=== PATIENT | female | born 1965 | race Caucasian/White ===

== ENCOUNTER 2020-07-01 07:29 | Outpatient (CLI) | payer OTHER, SELFPAY ==
--- NOTE | ~2020-07-01 | MM_ITS ---
EXAMINATION: MM screening [facility] BI w teri HISTORY: Screening TECHNIQUE: Craniocaudal and mediolateral oblique 3-D tomosynthesis images were obtained and synthetic 2-D images were generated. CAD analysis was submitted and interpreted. COMPARISON: Comparison to multiple prior studies sequentially, with oldest reviewed study dated 09/14. BREAST PARENCHYMAL COMPOSITION: There are scattered areas of fibroglandular density. FINDINGS: There is no evidence of suspicious mass, calcification, or architectural distortion to sugg est malignancy in either breast. There has been no suspicious interval change. IMPRESSION: 1. No mammographic evidence of malignancy. 2. Recommend routine screening mammography in one year. BI-RADS Category 1: Negative Reviewed, dictated and finalized at location A. NSIC MEDICAL EXAMINER
== END 2020-07-01 07:30 | disposition home or self-care (01) ==
LOC: ANHIMG 07:32
PROVIDERS: Family Provider Family Medicine; PCP Family Medicine; Visit Provider Advanced Practice Midwife
DX: Z12.31 Encounter for screening mammogram for malignant neoplasm of breast (principal)
CPT/HCPCS: 77063; 77067

== ENCOUNTER 2021-10-01 07:38 | Outpatient (CLI) | payer OTHER, SELFPAY ==
--- NOTE | ~2021-10-01 | MM_ITS ---
EXAMINATION: MM screening [facility] BI w teri HISTORY: Screening mammogram TECHNIQUE: Craniocaudal and mediolateral oblique 3-D tomosynthesis images were obtained and synthetic 2-D images were generated. CAD analysis was submitted and interpreted. COMPARISON: 07/01/2020, 04/05/2019 bilateral screening mammogram examinations BREAST PARENCHYMAL COMPOSITION: There are scattered areas of fibroglandular density. FINDINGS: There is no evidence of suspicious mass, calcification, or architectural distortion to sugg est malignancy in either breast. There has been no suspicious interval change. IMPRESSION: 1. No mammographic evidence of malignancy. 2. Recommend routine screening mammography in one year. BI-RADS Category 1: Negative Reviewed, dictated and finalized at location A.
== END 2021-10-01 07:39 | disposition home or self-care (01) ==
PROVIDERS: PCP Family Medicine; Visit Provider Obstetrics & Gynecology
DX: Z12.31 Encounter for screening mammogram for malignant neoplasm of breast (principal)
CPT/HCPCS: 77063; 77067

== ENCOUNTER 2023-06-08 08:02 | Outpatient (CLI) | payer OTHER, SELFPAY ==
--- NOTE | ~2023-06-08 | MM_ITS ---
EXAMINATION: MM screening [facility] BI w teri HISTORY: Screening mammogram TECHNIQUE: Craniocaudal and mediolateral oblique 3-D tomosynthesis images were obtained and synthetic 2-D images were generated..... Bilateral rotated lateral CC views. .CAD analysis was submitted and i nterpreted. COMPARISON: 10/01/2021, 07/01/2020, 04/05/2019 bilateral screening mammogram examinations BREAST PARENCHYMAL COMPOSITION: There are scattered areas of fibroglandular density. FINDINGS: There is no evidence of suspicious mass, calcification, or architectural distortion to sugg est malignancy in either breast. There has been no suspicious interval change. IMPRESSION: 1. No mammographic evidence of malignancy. 2. Recommend routine screening mammography in one year. BI-RADS Category 1: Negative Reviewed, dictated and finalized at location A. ATION PROTECTION TECHNICIAN
== END 2023-06-08 08:03 | disposition home or self-care (01) ==
LOC: ANHIMG 08:04
PROVIDERS: PCP Family Medicine; Visit Provider Advanced Practice Midwife
DX: Z12.31 Encounter for screening mammogram for malignant neoplasm of breast (principal)
CPT/HCPCS: 77063; 77067

== ENCOUNTER 2024-08-07 15:37 | Outpatient (CLI) | payer OTHER, SELFPAY ==
--- NOTE | ~2024-08-07 | MM_ITS ---
EXAMINATION: MM screening [facility] BI w teri HISTORY: Screening TECHNIQUE: Craniocaudal and mediolateral oblique 3-D tomosynthesis images were obtained and synthetic 2-D images were generated. CAD analysis was submitted and interpreted. COMPARISON: Comparison to multiple prior studies sequentially, with oldest reviewed study dated 12/24. BREAST PARENCHYMAL COMPOSITION: Not dense: There are scattered areas of fibroglandular density. FINDINGS: There is no evidence of suspicious mass, calcification, or architectural distortion to sugg est malignancy in either breast. There has been no suspicious interval change. IMPRESSION: 1. No mammographic evidence of malignancy. 2. Recommend routine screening mammography in one year. BI-RADS Category 1: Negative Reviewed, dictated and finalized at location A.
--- OUTSIDE RECORDS SUMMARY | 2024-08-07 16:47 | XMS_ITS ---
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 Past Treatment and Therapy Plans Oncology Chemotherapy Treatment Plan Name Start Date Discontinue Date Treatment Medications Discontinue Reason Plan Provider Cycles [id number] - [facility] - Lymphoma - ALT-803 / Rituximab (Expansion) 8 03/02/2018 INV-[facility] ALT-803 (/C [id number])riTUXimab (RITUXAN)riTUX imab (RITUXAN) IVPB in 500 mL Therapy Complete Wilmer Colon MD 5 of 5 cycles completed Oncology Supportive Care Plan Name Start Date Discontinue Date Treatment Medications Discontinue Reason Plan Provider IV MAINTENANCE THERAPY PLAN 10/12/2017 11/01/2018 No medications scheduled. Therapy Complete Wilmer Colon MD Lifetime Dose Tracking * Chemical Lifetime Dose Automatic Entry Manual Entr y DLP 11,981.9 mGycm 11,981.9 mGycm 0 mGycm Resolved Problems Problem Noted Date Diagnosed Date Resolved Date Encounter for chemotherapy management 06/01/2017 11/01/2018
--- OUTSIDE RECORDS SUMMARY | 2024-08-07 16:47 | XMS_ITS | Referral Summary ---
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) Discharge Disposition: Discharge to home or self care 06/27/2024 12:30 PM PASTORAL WORKER Lab [facility] - Lab Collection [facility] [address] [address] 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) 06/27/2024 1:30 PM PASTORAL WORKER Office Visit [facility] [address] [facility] [address] [place] [address] Ashley Stroud NP 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) (Primary Dx) from Last 3 Months Allergies Active Allergy Reactions Criticality Noted Date Comments Amoxicillin Hives,Rash Medium 07/07/2012 Ampicillin Hives,Rash Medium 07/14/2012 Sulfamethoxazole-Trimethoprim Hives,Rash Medium 2012 Cefuroxime Hives,Rash Medium 08/02/2014 Metronidazole Hives,Rash Medium 05/12/2012 Medications naproxen (ALEVE) 220 mg tablet TAKE TABLET 1-2 tablets daily as needed Active zolpidem (AMBIEN) 5 mg tablet 1 Active triamterene-hy droCHLOROthiaz prashant 37.5-25 mg per tablet 2 Active pedi multivit no.17 w-fluoride (Multi-Vitamin With Fluoride) 0.5 mg tablet,chewabl e Take 1 tablet by mouth daily Active Zepbound 7.5 mg/0.5 mL pen injector INJECT 7.5 MG (0.5 ML) SUBCUTANEOUSLY WEEKLY 5 Active azelaic acid 15 % gel APPLY THIN LAYER TO FRESHLY WASHED AND DRIED FACE DAILY, CAN USE UP TO TWICE A DAY 5 Active tretinoin (RETIN-A) 0.025 % cream PLEASE SEE ATTACHED FOR DETAILED DIRECTIONS 5 Active Active Problems Problem Noted Date Diagnosed Date Hallux rigidus of right foot 11/03/2017 Follicular lymphoma of lymph nodes of multiple s ites 09/14/2017 Resolved Problems Problem Noted Date Diagnosed Date Resolved Date Encounter for chemotherapy management 06/01/2017 11/01/2018 Immunizations Immunization Administration Dates Next Due Influenza, Quadrivalent, Spl it, Preservative Free, Intramuscular 02/25/2022,02/14/2020,02/07/2019,02/03,02/02/2018 Influenza, Trivalent, IM (MDV) 01/07/2014,2012 Influenza, Trivalent, Preser vative Free, Intramuscular 02/14/2017,12/28/2015,01/14/2015 Influenza, Unspecified 02/12/2021 [employer] SARS-CoV-2 Monovalent Vaccination (12+ Yrs) PURPLE 07/17/2020,06/26/2020 ZOSTER Recombinant 05/29/2021,02/12/2021 Social History Tobacco Use Types Packs/Day Years Used Date Smoking Tobacco: Never Smokeless Tobacco: Never Tobacco Cessation:Counseling Given: No Alcohol Use Standard Drinks/Week Comments Yes 0 (1 standard drink = 0.6 oz pur e alcohol) occasional Comments No Sex and Gender Information Value Date Recorded Sex Assigned at Not on file Legal Sex Female 6:57 AM PASTORAL WORKER Gender Identity Not on file Sexual Orientation Not on file Last Filed Vital Signs Vital Sign Reading Time Taken Comments Blood Pressure 122/84 06/27/2024 1:18 PM PASTORAL WORKER Pulse 69 06/27/2024 1:18 PM PASTORAL WORKER Temperature 36.9 C (98.5 F) 06/27/2024 1:18 PM PASTORAL WORKER Respiratory Rate 16 06/27/2024 1:18 PM PASTORAL WORKER Oxygen Saturation 98% 06/27/2024 1:1 8 PM PASTORAL WORKER Inhaled Oxygen Concentration - - Weight 88.5 kg (195 lb) 06/27/2024 1:18 PM PASTORAL WORKER Height 166.4 cm (5' 5.51 ) 06/27/2024 1 :18 PM PASTORAL WORKER measure without shoes Body Mass Index 31.94 06/27/2024 1:18 PM PASTORAL WORKER Plan of Treatment Not on file Medical Devices Explanted Type Area Sequins Spooler Device Identifier Shelf Expiration Date Model / Serial / Lot [employer] [id number] Yony .045in 6in 2 Trocar Smooth Wire Fixation Sterile - [id number] Explanted:Qty: 1 on 01/20/2018 by Koby Smith MD at [facility] [employer] [id number] / / Procedures Procedure Name Priority Date/Time Associated Diagnosis Comments EGFR Routine 06/27/2024 12:46 PM PASTORAL WORKER 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) DIFFERENTIAL AUTO Routine 06/27/2024 12: 46 PM PASTORAL WORKER 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) BETA 2 MICROGLOBULIN SERUM Routine 06/27/2024 12:46 PM PASTORAL WORKER 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) CBC WITH AUTO DIFFERENTIAL Routine 06/27/2024 12:46 PM PASTORAL WORKER 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) COMPREHENSIVE METABOLIC PANEL Routine 06/27/2024 12:46 PM PASTORAL WORKER 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) LACTATE DEHYDROGENASE Routine 06/27/2024 12:46 PM PASTORAL WORKER 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) CT SOFT TISSUE NECK W CONTRAST Schedule Routine, Read Routine (OP Routine) 06/27/2024 10:27 AM PASTORAL WORKER 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 73 m2 Comment: Interpretive Data Reference Interval Normal >/= 90 mL/min/1.73m2 Mildly decreased* 60 - 89 mL/min/1.73m2 Mildly to moderately decreased 45 - 59 mL/min/1.73m2 Moderately to severely decreased 30 - 44 mL/min/1.73m2 Severely decreased 15 - 29 mL/min/1.73m2 Kidney Failure < 15 mL/min/1.73m2 *Relative to young adult level Estimated glomerular filtration rate is determined by the 2020 CKD-EPI equation recommended by the National Kidney Foundation (A Unifying Approach to GFR Estimation: Recommendations of the NKF-ASK Task Force on Reassessing the Inclusion of Race in Diagnosing Kidney Disease, JASN 2020). The CKD-EPI equation should not be used for patients with unstable renal function and has not been validated in children and those over 70. Current interpretive data was last reviewed 2021. Blood 06/27/2024 12:4 6 PM PASTORAL WORKER 06/27/2024 12:51 PM PASTORAL WORKER us Wilmer Colon MD LAB BLOOD ORDERABLES Final R esult [facility] [place] [address] * Differential, auto (06/27/2024 12:46 PM PASTORAL WORKER) Neutrophil abs 4.1 1.5 - 6.5 K/cumm Comment:Testing performed by : [facility], [address] [place] [phone] Lymphocyte abs 1.4 0.8 - 3.3 K/cumm [facility] Comment:Testing performed by : [facility], [address] [place] [phone] Monocyte abs 0.4 0.2 - 0.8 K/cumm [facility] Comment:Testing performed by : [facility], [address] [place], [place] [phone] Eosinophil abs 0.1 0.0 - 0.5 K/cumm [facility] Comment:Testing performed by : [facility], [address] [place] [phone] Basophil abs 0.0 0.0 - 0.1 K/cumm [facility] Comment:Testing performed by : [facility], [address] [place] [phone] Neutrophil pct 67.6 % [facility] Comment: Interpretive Data Percent cell count reference ranges are not reported, since discordance with absolute values may lead to misinterpretation of CBC data. Current Interpretive Data was last revised on 2017. Testing performed by: [facility], [address] [place] [phone] Lymphocyte pct 23.5 % [facility] Comment: Interpretive Data Percent cell count reference ranges are not reported, since discordance with absolute values may lead to misinterpretation of CBC data. Current Interpretive Data was last revised on 2017. Testing performed by: [facility], [address] [place] [phone] Monocyte pct 6.2 % [facility] Comment: Interpretive Data Percent cell count reference ranges are not reported, since discordance with absolute values may lead to misinterpretation of CBC data. Current Interpretive Data was last revised on 2017. Testing performed by: [facility], [address] [place] [phone] Eosinophil pct 2.3 % [facility] Comment: Interpretive Data Percent cell count reference ranges are not reported, since discordance with absolute values may lead to misinterpretation of CBC data. Current Interpretive Data was last revised on 2017. Testing performed by: [facility], [address] [place] [address] Basophil pct 0.4 % [facility] Comment: Interpretive Data Percent cell count reference ranges are not reported, since discordance with absolute values may lead to misinterpretation of CBC data. Current Interpretive Data was last revised on 2017. Testing performed by: [facility], [address] [place] [address] Blood 06/27/2024 12:4 6 PM PASTORAL WORKER 06/27/2024 12:51 PM PASTORAL WORKER Wilmer Colon MD LAB BLOOD ORDERABLES Final R esult [facility] Department [place] [address] * CBC with auto differential (06/27/2024 12:46 PM PASTORAL WORKER) WBC 6.0 3.8 - 9.9 K/cumm Comment:Testing performed by : [facility], [address] [place] [address] Hgb 14.5 11.9 - 15.5 g/dL [facility] Comment:Testing performed by : [facility], [address] [place] [address] Hct 42.9 35.6 - 45.5 % [facility] Comment:Testing performed by : [facility], [address] [place] [address] Plt 227 150 - 400 K/cumm [facility] Comment:Testing performed by : [facility], [address] [place] [address] MPV 7.1 6.8 - 10.4 fL [facility] Comment:Testing performed by : [facility], [address] [place], [place] [phone] RBC 4.84 3.90 - 5.20 M/cumm [facility] Comment:Testing performed by : [facility], [address] [place], [place] [phone] MCV 88.7 81.3 - 96.4 fL [facility] Comment:Testing performed by : [facility], [address] [place], [place] [phone] MCH 29.9 27.1 - 33.3 pg [facility] Comment:Testing performed by : [facility], [address] [place], [place] [phone] MCHC 33.7 32.3 - 35.7 g/dL [facility] Comment:Testing performed by : [facility], [address] [place], [place] [phone] RDW CV 13.9 11.1 - 14.9 % [facility] Comment:Testing performed by : [facility], [address] [place], [place] [phone] NRBC abs 0.00 0.00 - 0.01 K/cumm [facility] Comment:Testing performed by : [facility], [address] [place], [place] [phone] Blood 06/27/2024 12:4 6 PM PASTORAL WORKER 06/27/2024 12:51 PM PASTORAL WORKER us Wilmer Colon MD LAB BLOOD ORDERABLES Final R esult [facility] Department [place] [address] * Lactate dehydrogenase (LD) (06/27/2024 12:46 PM PASTORAL WORKER) Lactate dehydrogenase (LDH) 150 100 - 250 Units/L Blood 06/27/2024 12:4 6 PM PASTORAL WORKER 06/27/2024 12:51 PM PASTORAL WORKER Wilmer Colon MD LAB BLOOD ORDERABLES Final R esult Performing Organization Address [facility] Co de Phone Number [facility] [place] [address] * Beta 2 microglobulin, serum (06/27/2024 12:46 PM PASTORAL WORKER) Pathologist [facility] Beta 2 Microglobulin, Serum 1.80 1.00 - 2.50 mg/L Comment: Interpretive Data The Morgan Beta-2 microglobulin assay procedure was used. Results from different manufacturers or methods may not be comparable. Serial testing should be performed using the same method. Blood 06/27/2024 12:4 6 PM PASTORAL WORKER 06/27/2024 1:11 PM PASTORAL WORKER Wilmer Colon MD LAB BLOOD ORDERABLES Final R [facility] Performing Organization Address [facility] de Phone Number [facility] [place] [address] * Comprehensive metabolic panel (06/27/2024 12:46 PM PASTORAL WORKER) [facility] Sodium 140 135 - 145 mmol/L Potassium, pl 3.8 3.3 - 4.9 mmol/L [facility] Chloride 102 97 - 110 mmol/L [facility] CO2 31 22 - 32 mmol/L [facility] Anion gap 7 2 - 15 mmol/L [facility] BUN 17 6 - 25 mg/dL [facility] Creatinine 0.80 0.60 - 1.10 mg/dL [facility] Glucose 101 70 - 199 mg/dL [facility] Comment: Interpretive Data Fasting glucose >/= 126 mg/dl is diagnostic for diabetes. Fasting is defined as no caloric intake for at least 8 hours. Fasting glucose between 100 mg/dl to 125 mg/dl is diagnostic of prediabetes. In a patient with classic symptoms of hyperglycemia or hyperglycemic crisis, a random glucose >/= 200 mg/dl is diagnostic for diabetes. In the absence of unequivocal hyperglycemia, results should be confirmed by repeat testing. The classification and Diagnosis of Diabetes Diabetes Care 2021; 46: S19-S40. Current interpretive data was last revised 2022. Calcium 9.4 8.5 - 10.3 mg/dL [facility] Bilirubin, total 0.4 0.1 - 1.2 mg/dL [facility] Protein, pl 7.1 6.5 - 8.5 g/dL [facility] Albumin 4.1 3.5 - 5.0 g/dL [facility] Alk phos 93 40 - 130 Units/L [facility] ALT 13 7 - 45 Units/L [facility] AST 19 10 - 45 Units/L [facility] Blood 06/27/2024 12:4 6 PM PASTORAL WORKER 06/27/2024 12:51 PM PASTORAL WORKER us Wilmer Colon MD LAB BLOOD ORDERABLES Final R esult [facility] Department [place] [address] * CT Chest Abdomen Pelvis W Contrast (06/27/2024 10:27 AM PASTORAL WORKER) Anatomical Region Laterality Modality Body N/A Computed Tomogra phy 06/27/2024 10:4 3 AM PASTORAL WORKER Impressions 06/27/2024 10:43 AM PASTORAL WORKER 1. No convincing evidence for recurrent lymphoma. 2. Mesenteric lymph node increased in size 2 mm short access to now 8 mm maximum dimension after being stable for at least 3 years on imaging. Consider 6 month follow-up for this probably benign finding. Electronically signed by: Rommel Wilson M.D. Narrative 06/27/2024 10:43 AM PASTORAL WORKER EXAMINATION: Computed tomography of the chest, abdomen and pelvis with intravenous contrast HISTORY: Lymphoma follow-up TECHNIQUE: Transaxial computed tomographic images of the chest, abdomen and pelvis were obtained with intravenous contrast according to the standard protocol after the uneventful administration of intravenous contrast. FINDINGS: Comparison April 2022. No acute consolidation the lung. No suspicious pulmonary nodule or mass. There is mild dependent atelectasis. No suspicious thoracic lymphadenopathy. Heart size upper limit normal. No suspicious findings liver, gallbladder, adrenals, pancreas, spleen, or either kidney. No hydronephrosis. Urinary bladder decompressed. No suspicious finding of the uterus or either ovary/adnexa. No acute process small or large bowel. Normal appendix. 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 An 8 mm short axis lymph node previously measured 6 mm on soft tissue image 179; this is previously stable for multiple examinations, 2021, 2020, in 2019. Spleen is within normal limit size. Procedure Note Rommel Wilson MD - 06/27/2024 EXAMINATION: Computed tomography of the chest, abdomen and pelvis with intravenous contrast HISTORY: Lymphoma follow-up TECHNIQUE: Transaxial computed tomographic images of the chest, abdomen and pelvis were obtained with intravenous contrast according to the standard protocol after the uneventful administration of intravenous contrast. FINDINGS: Comparison April 2022. No acute consolidation the lung. No suspicious pulmonary nodule or mass. There is mild dependent atelectasis. No suspicious thoracic lymphadenopathy. Heart size upper limit normal. No suspicious findings liver, gallbladder, adrenals, pancreas, spleen, or either kidney. No hydronephrosis. Urinary bladder decompressed. No suspicious finding of the uterus or either ovary/adnexa. No acute process small or large bowel. Normal appendix. 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 An 8 mm short axis lymph node previously measured 6 mm on soft tissue image 179; this is previously stable for multiple examinations, 2021, 2020, in 2019. Spleen is within normal limit size. IMPRESSION: 1. No convincing evidence for recurrent lymphoma. 2. Mesenteric lymph node increased in size 2 mm short access to now 8 mm maximum dimension after being stable for at least 3 years on imaging. Consider 6 month follow-up for this probably benign finding. Electronically signed by: Rommel Wilson M.D. us Wilmer Colon MD IMG CT PROCEDURES Final Resu lt * CT Neck Soft Tissue W Contrast (06/27/2024 10:27 AM PASTORAL WORKER) Anatomical Region Laterality Modality Head and Neck N/A Computed Tomogra phy 06/27/2024 10:3 7 AM PASTORAL WORKER Impressions 06/27/2024 10:37 AM PASTORAL WORKER No cervical lymphadenopathy visualized. Electronically signed by: Mauri Smith MD Narrative 06/27/2024 10:37 AM PASTORAL WORKER EXAMINATION: CT of the neck with contrast HISTORY: restaging previously treated follicular lymphoma. TECHNIQUE: CT of the neck was performed according to standard protocol after the uneventful administration of intravenous contrast. Contrast information: 120 mL Optiray-350 COMPARISON: 04/19/2022. FINDINGS: No abnormal postcontrast enhancement or mass lesion is identified. No cervical lymphadenopathy is seen by CT size criteria. The bilateral major salivary glands are symmetric and grossly unremarkable. The muscles of the neck are normal. The major arterial vessels of the neck demonstrate normal course and caliber. Fascial planes are preserved and the deep spaces of the neck are normal. The visualized airway is widely patent. The base of the skull and the temporal bones are normal. Limited views of the brain including the cerebellum and brainstem are normal. The visualized portions of the orbits are normal. The visualized portions of the mastoids are normal. The visualized portions of the paranasal sinuses are normal. Unremarkable thyroid gland. Multilevel degenerative disc/facet/uncovertebral disease is present. Varying levels of up to mild spinal canal stenosis are noted. Varying levels of up to mild foraminal stenoses are noted. Findings in the upper thorax are detailed in the report for the concurrently acquired CT of the chest, abdomen and pelvis. Procedure Note Mauri Smith MD - 06/27/2024 EXAMINATION: CT of the neck with contrast HISTORY: restaging previously treated follicular lymphoma. TECHNIQUE: CT of the neck was performed according to standard protocol after the uneventful administration of intravenous contrast. Contrast information: 120 mL Optiray-350 COMPARISON: 04/19/2022. FINDINGS: No abnormal postcontrast enhancement or mass lesion is identified. No cervical lymphadenopathy is seen by CT size criteria. The bilateral major salivary glands are symmetric and grossly unremarkable. The muscles of the neck are normal. The major arterial vessels of the neck demonstrate normal course and caliber. Fascial planes are preserved and the deep spaces of the neck are normal. The visualized airway is widely patent. The base of the skull and the temporal bones are normal. Limited views of the brain including the cerebellum and brainstem are normal. The visualized portions of the orbits are normal. The visualized portions of the mastoids are normal. The visualized portions of the paranasal sinuses are normal. Unremarkable thyroid gland. Multilevel degenerative disc/facet/uncovertebral disease is present. Varying levels of up to mild spinal canal stenosis are noted. Varying levels of up to mild foraminal stenoses are noted. Findings in the upper thorax are detailed in the report for the concurrently acquired CT of the chest, abdomen and pelvis. IMPRESSION: No cervical lymphadenopathy visualized. Electronically signed by: Mauri Smith MD Wilmer Colon MD IMG CT PROCEDURES Final Resu lt * POCT creatinine (06/27/2024 9:56 AM PASTORAL WORKER) Pathologist [facility] Creatinine POC 0.9 0.6 - 1.1 mg/dL Blood 06/27/2024 9:56 AM PASTORAL WORKER 06/27/2024 9:56 AM PASTORAL WORKER Wilmer Colon MD LAB POCT ORDERABLES - DEVICE Final Result Performing Organization Address City/[facility]/ZIP Co de Phone Number [facility] Department [place] [employer] [address] * Hepatitis C antibody (05/18/2017 9:43 AM PASTORAL WORKER) [facility] Hep C Ab Nonreactive Nonreactive [facility] Comment: Interpretive Data Positive and greyzone results should be confirmed by a molecular method. If positive or greyzone, a second separately collected sample should be submitted for Hepatitis C Virus RNA. Detection and Quantitation by Real-Time Reverse [employer] Salesworker-PCR.Current Interpretive data was last revised on 2016. Blood specimen (specimen) 05/18/2017 9:43 AM PASTORAL WORKER 05/18/2017 10:16 AM PASTORAL WORKER Narrative [facility] - 05/18/2017 1:47 PM PASTORAL WORKER Wilmer Colon MD LAB MICROBIOLOGY - GENERAL O RDERABLES Edited Result - Final [facility] Department [place] [address] from Last 3 Months or Most Recently Relevant to Health Maintenance Insurance [facility] CHOICE PLUS [facility] Care Teams Head Greenskeeper Relationship Specialty Start Date End Date João Alvarez MD PCP - General 08/23/16 Wilmer Colon MD [address] [facility] [address] [place] [address] Medical Oncologist/Manual [facility] 04/16/22
--- OUTSIDE RECORDS SUMMARY | 2024-08-07 16:47 | XMS_ITS | Clinical Summary ---
Author Organization [facility] Address [address] [place] [address] Care Team Providers Care Press Operator Heavy Duty Name Role Phone João Alvarez MD Primary Care Provider + [phone] Wilmer Colon MD Unavailable [phone] Allergies Active Allergy Reactions Criticality Noted Date [...] Date Encounter for chemotherapy management 06/01/2017 11/01/2018 Encounters Date Type Department Care Team Description 06/27/2024 1:30 PM ADMINISTRATIVE SUPPORT ASSISTANT Office Visit 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) (Primary Dx) 06/27/2024 12:30 PM ADMINISTRATIVE SUPPORT ASSISTANT Lab [facility] - Lab Collection [address] [facility] [address] [place] [address] 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) 06/27/2024 9:35 AM ADMINISTRATIVE SUPPORT ASSISTANT - 06/27/2024 11:59 PM ADMINISTRATIVE SUPPORT ASSISTANT Hospital Encounter [facility] [address] [place] [id number] Wilmer Colon MD 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) Discharge Disposition: Discharge to home or self care from Last 3 Months Immunizations Immunization Administration Dates Next Due Influenza, Quadrivalent, Spl it, Preservative Free, Intramuscular 02/25/2022,02/14/2020,02/07/2019,02/03,02/02/2018 Influenza, Trivalent, IM (MDV) 01/07/2014,2012 Influenza, Trivalent, Preser vative Free, Intramuscular 02/14/2017,12/28/2015,01/14/2015 Influenza, Unspecified 02/12/2021 Pfizer SARS-CoV-2 Monovalent Vaccination (12+ Yrs) PURPLE 07/17/2020,06/26/2020 ZOSTER Recombinant 05/29/2021,02/12/2021 Surgical History Surgery Date Site/Laterality Comments LASIK TONSILLECTOMY LYMPH NODE BIOPSY neck CYST REMOVAL lip TUBAL LIGATION BLADDER REPAIR SEPTOPLASTY Medical History Medical History Date Comments HTN (hypertension) Arthritis Non Hodgkin's lymphoma (HCC) 2011, 2017 chin ated with immunotherapy Family History Medical History Relation Name Comments Diabetes Brother Diabetes Father Heart disease Father No Known Problems Mother Breast cancer Sister Relation Name Status Comments Brother Alive Father Alive Mother Alive Sister Alive Social History Tobacco Use Types Packs/Day Years Used Date Smoking Tobacco: Never Smokeless Tobacco: Never Tobacco Cessation:Counseling Given: No Alcohol Use Standard Drinks/Week Comments Yes 0 (1 standard drink = 0.6 oz pur e alcohol) occasional Comments No Sex and Gender Information Value Date Recorded Sex Assigned at Not on file Legal Sex Female 6:57 AM ADMINISTRATIVE SUPPORT ASSISTANT Gender Identity Not on file Sexual Orientation Not on file Obstetrics History Last Filed Vital Signs Vital Sign Reading Time Taken Comments Blood Pressure 122/84 06/27/2024 1:18 PM ADMINISTRATIVE SUPPORT ASSISTANT Pulse 69 06/27/2024 1:18 PM ADMINISTRATIVE SUPPORT ASSISTANT Temperature 36.9 C (98.5 F) 06/27/2024 1:18 PM ADMINISTRATIVE SUPPORT ASSISTANT Respiratory Rate 16 06/27/2024 1:18 PM ADMINISTRATIVE SUPPORT ASSISTANT Oxygen Saturation 98% 06/27/2024 1:1 8 PM ADMINISTRATIVE SUPPORT ASSISTANT Inhaled Oxygen Concentration - - Weight 88.5 kg (195 lb) 06/27/2024 1:1 8 PM ADMINISTRATIVE SUPPORT ASSISTANT Height 166.4 cm (5' 5.51 ) 06/27/2024 1 :18 PM ADMINISTRATIVE SUPPORT ASSISTANT measure without shoes Body Mass Index 31.94 06/27/2024 1:18 PM ADMINISTRATIVE SUPPORT ASSISTANT Plan of Treatment Health Maintenance Due Date Last Done Comments Breast Cancer Screening-Mammogram 1966 Cervical Cancer Screening 1966 Colon Cancer Screening-Colonoscopy 1966 Depression Screening 1966 DTaP/Tdap/Td Vaccine (1 - Tdap) 1977 Hepatitis B Screening 1984 Regular Well Visit/Exam 18-64 1984 Pneumococcal vaccine <65 (1 of 2 - PCV) 1985 Covid-19 Vaccine (3 - Pfizer risk series) 08/14/2020 07/17/2020, 06/26/2020 Influenza Vaccine (#1) 2024 , 02/12/2021, 02/14/2020, Additional history exists Hepatitis C Screening Completed 05/18/2017, 013 Zoster Vaccine Completed 05/29/2021, 02/12/2021 Medical Devices Explanted Type Area Data Integration Architect Device Identifier Shelf Expiration Date Model / Serial / Lot [employer] [id number] .045in 6in 2 Trocar Smooth Wire Fixation Sterile - [id number] Explanted:Qty: 1 on 01/20/2018 by Koby Smith MD at [facility] [place] [employer] [id number] / / Procedures Procedure Name Priority Date/Time Associated Diagnosis Comments EGFR Routine 06/27/2024 12:46 PM ADMINISTRATIVE SUPPORT ASSISTANT 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) DIFFERENTIAL AUTO Routine 06/27/2024 12: 46 PM ADMINISTRATIVE SUPPORT ASSISTANT 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) BETA 2 MICROGLOBULIN SERUM Routine 06/27/2024 12:46 PM ADMINISTRATIVE SUPPORT ASSISTANT 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) CBC WITH AUTO DIFFERENTIAL Routine 06/27/2024 12:46 PM ADMINISTRATIVE SUPPORT ASSISTANT 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) COMPREHENSIVE METABOLIC PANEL Routine 06/27/2024 12:46 PM ADMINISTRATIVE SUPPORT ASSISTANT 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) LACTATE DEHYDROGENASE Routine 06/27/2024 12:46 PM ADMINISTRATIVE SUPPORT ASSISTANT 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) CT SOFT TISSUE NECK W CONTRAST Schedule Routine, Read Routine (OP Routine) 06/27/2024 10:27 AM ADMINISTRATIVE SUPPORT ASSISTANT 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) CT CHEST ABDOMEN PELVIS W CONTRAST Schedule Routine, Read Routine (OP Routine) 06/27/2024 10:27 AM ADMINISTRATIVE SUPPORT ASSISTANT 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) POCT CREATININE - DEVICE Routine 06/27/2024 9:56 AM ADMINISTRATIVE SUPPORT ASSISTANT HEPATITIS C ANTIBODY Routine Gen Lab 05/18/2017 9:43 AM ADMINISTRATIVE SUPPORT ASSISTANT from Last 3 Months or Most Recently Relevant to Health Maintenance Results * eGFR (06/27/2024 12:46 PM ADMINISTRATIVE SUPPORT ASSISTANT) eGFR 85 >=60 mL/min/1. 73 m2 Comment: [...] reviewed 2021. Blood 06/27/2024 12:4 6 PM ADMINISTRATIVE SUPPORT ASSISTANT 06/27/2024 12:51 PM ADMINISTRATIVE SUPPORT ASSISTANT Wilmer Colon MD LAB BLOOD ORDERABLES Final R esult [facility] One [facility] Department of Laboratories [place], [place] [id number] * Differential, auto (06/27/2024 12:46 PM ADMINISTRATIVE SUPPORT ASSISTANT) Neutrophil abs 4.1 1.5 - 6.5 K/cumm Comment:Testing performed by : [facility], [address] [place] [phone] Lymphocyte abs 1.4 0.8 - 3.3 K/cumm [facility] Comment:Testing performed by : [facility], [address] [place] [phone] Monocyte abs 0.4 0.2 - 0.8 K/cumm [facility] Comment:Testing performed by : [facility], [address] [place] [phone] Eosinophil abs 0.1 0.0 - 0.5 K/cumm [facility] Comment:Testing performed by : [facility], [address] [place] [phone] Basophil abs 0.0 0.0 - 0.1 K/cumm [facility] Comment:Testing performed by : [facility], [address] [place] [phone] Neutrophil pct 67.6 % [facility] Comment: Interpretive Data Percent cell count reference ranges are not reported, since discordance with absolute values may lead to misinterpretation of CBC data. Current Interpretive Data was last revised on 2017. Testing performed by: [facility], [address] [place] [phone] Lymphocyte pct 23.5 % [facility] Comment: Interpretive Data Percent cell count reference ranges are not reported, since discordance with absolute values may lead to misinterpretation of CBC data. Current Interpretive Data was last revised on 2017. Testing performed by: [facility], [address] [place] [phone] Monocyte pct 6.2 % [facility] Comment: Interpretive Data Percent cell count reference ranges are not reported, since discordance with absolute values may lead to misinterpretation of CBC data. Current Interpretive Data was last revised on 2017. Testing performed by: [facility], [address] [place] [phone] Eosinophil pct 2.3 % [facility] Comment: Interpretive Data Percent cell count reference ranges are not reported, since discordance with absolute values may lead to misinterpretation of CBC data. Current Interpretive Data was last revised on 2017. Testing performed by: [facility], [address] [place] [phone] Basophil pct 0.4 % [facility] Comment: Interpretive Data Percent cell count reference ranges are not reported, since discordance with absolute values may lead to misinterpretation of CBC data. Current Interpretive Data was last revised on 2017. Testing performed by: [facility], [address] [place] [phone] Blood 06/27/2024 12:4 6 PM ADMINISTRATIVE SUPPORT ASSISTANT 06/27/2024 12:51 PM ADMINISTRATIVE SUPPORT ASSISTANT us Wilmer Colon MD LAB BLOOD ORDERABLES Final R esult [facility] Department [place] [address] * CBC with auto differential (06/27/2024 12:46 PM ADMINISTRATIVE SUPPORT ASSISTANT) WBC 6.0 3.8 - 9.9 K/cumm Comment:Testing performed by : [facility], [address] [place] [address] Hgb 14.5 11.9 - 15.5 g/dL [facility] Comment:Testing performed by : [facility], [address] [place] [address] Hct 42.9 35.6 - 45.5 % [facility] Comment:Testing performed by : [facility], [address] [place] [address] Plt 227 150 - 400 K/cumm [facility] Comment:Testing performed by : [facility], [address] [place] [address] MPV 7.1 6.8 - 10.4 fL [facility] Comment:Testing performed by : [facility], [address] [place] [address] RBC 4.84 3.90 - 5.20 M/cumm [facility] Comment:Testing performed by : [facility], [address] [place] [address] MCV 88.7 81.3 - 96.4 fL [facility] Comment:Testing performed by : [facility], [address] [place] [address] MCH 29.9 27.1 - 33.3 pg [facility] Comment:Testing performed by : [facility], [address] [place] [address] MCHC 33.7 32.3 - 35.7 g/dL [facility] Comment:Testing performed by : [facility], [address] [place] [phone] RDW CV 13.9 11.1 - 14.9 % [facility] Comment:Testing performed by : [facility], [address] [place] [phone] NRBC abs 0.00 0.00 - 0.01 K/cumm [facility] Comment:Testing performed by : [facility], [address] [place] [phone] Blood 06/27/2024 12:4 6 PM ADMINISTRATIVE SUPPORT ASSISTANT 06/27/2024 12:51 PM ADMINISTRATIVE SUPPORT ASSISTANT Wilmer Colon MD LAB BLOOD ORDERABLES Final R esult Performing Organization Address City/[facility] Co de Phone Number [facility] Department [place] [address] * Lactate dehydrogenase (LD) (06/27/2024 12:46 PM ADMINISTRATIVE SUPPORT ASSISTANT) Lactate dehydrogenase (LDH) 150 100 - 250 Units/L Blood 06/27/2024 12:4 6 PM ADMINISTRATIVE SUPPORT ASSISTANT 06/27/2024 12:51 PM ADMINISTRATIVE SUPPORT ASSISTANT Wilmer Colon MD LAB BLOOD ORDERABLES Final R esult Performing Organization Address [facility] Co de Phone Number [facility] Department [place] [address] * Beta 2 microglobulin, serum (06/27/2024 12:46 PM ADMINISTRATIVE SUPPORT ASSISTANT) Beta 2 Microglobulin, Serum 1.80 1.00 - 2.50 mg/L Comment: Interpretive Data The Morgan Beta-2 microglobulin assay procedure was used. Results from different manufacturers or methods may not be comparable. Serial testing should be performed using the same method. Blood 06/27/2024 12:4 6 PM ADMINISTRATIVE SUPPORT ASSISTANT 06/27/2024 1:11 PM ADMINISTRATIVE SUPPORT ASSISTANT Wilmer Colon MD LAB BLOOD ORDERABLES Final R esult Performing Organization Address [facility]/ZIP Co de Phone Number [facility] One [facility] Department [place] [address] * Comprehensive metabolic panel (06/27/2024 12:46 PM ADMINISTRATIVE SUPPORT ASSISTANT) Sodium 140 135 - 145 mmol/L Potassium, pl 3.8 3.3 - 4.9 mmol/L [facility] Chloride 102 97 - 110 mmol/L [facility] CO2 31 22 - 32 mmol/L [facility] Anion gap 7 2 - 15 mmol/L [facility] BUN 17 6 - 25 mg/dL [facility] Creatinine 0.80 0.60 - 1.10 mg/dL [facility] Glucose 101 70 - 199 mg/dL [facility] Comment: Interpretive Data Fasting glucose >/= [...] classification and Diagnosis of Diabetes Diabetes Care 202; 46: S19-S40. Current interpretive data was last revised 2022. Calcium 9.4 8.5 - 10.3 mg/dL [facility] Bilirubin, total 0.4 0.1 - 1.2 mg/dL [facility] Protein, pl 7.1 6.5 - 8.5 g/dL [facility] Albumin 4.1 3.5 - 5.0 g/dL [facility] Alk phos 93 40 - 130 Units/L [facility] ALT 13 7 - 45 Units/L [facility] AST 19 10 - 45 Units/L [facility] Blood 06/27/2024 12:4 6 PM ADMINISTRATIVE SUPPORT ASSISTANT 06/27/2024 12:51 PM ADMINISTRATIVE SUPPORT ASSISTANT us Wilmer Colon MD LAB BLOOD ORDERABLES Final R esult Performing Organization Address [facility]/ZIP Co de Phone Number [facility] Department [place] [address] * CT Chest Abdomen Pelvis W Contrast (06/27/2024 10:27 AM ADMINISTRATIVE SUPPORT ASSISTANT) Anatomical Region Laterality Modality Body N/A Computed Tomogra phy 06/27/2024 10:4 3 AM ADMINISTRATIVE SUPPORT ASSISTANT Impressions 06/27/2024 10:43 AM ADMINISTRATIVE SUPPORT ASSISTANT 1. No convincing evidence for recurrent lymphoma. 2. Mesenteric lymph node increased in size 2 mm short access to now 8 mm maximum dimension after being stable for at least 3 years on imaging. Consider 6 month follow-up for this probably benign finding. Electronically signed by: Rommel Wilson M.D. Narrative 06/27/2024 10:43 AM ADMINISTRATIVE SUPPORT ASSISTANT EXAMINATION: Computed tomography of the chest, abdomen [...] Soft Tissue W Contrast (06/27/2024 10:27 AM ADMINISTRATIVE SUPPORT ASSISTANT) Anatomical Region Laterality Modality Head and Neck N/A Computed Tomogra phy 06/27/2024 10:3 7 AM ADMINISTRATIVE SUPPORT ASSISTANT Impressions 06/27/2024 10:37 AM ADMINISTRATIVE SUPPORT ASSISTANT No cervical lymphadenopathy visualized. Electronically signed by: Mauri Smith MD Narrative 06/27/2024 10:37 AM ADMINISTRATIVE SUPPORT ASSISTANT EXAMINATION: CT of the neck with contrast [...] lt * POCT creatinine (06/27/2024 9:56 AM ADMINISTRATIVE SUPPORT ASSISTANT) Creatinine POC 0.9 0.6 - 1.1 mg/dL Blood 06/27/2024 9:56 AM ADMINISTRATIVE SUPPORT ASSISTANT 06/27/2024 9:56 AM ADMINISTRATIVE SUPPORT ASSISTANT us Wilmer Colon MD LAB POCT ORDERABLES - DEVICE Final Result Performing Organization Address [facility] Co de Phone Number [facility] [place] [address] * Hepatitis C antibody (05/18/2017 9:43 AM ADMINISTRATIVE SUPPORT ASSISTANT) Hep C Ab Nonreactive Nonreactive [facility] Comment: Interpretive Data Positive and greyzone results should be confirmed by a molecular method. If positive or greyzone, a second separately collected sample should be submitted for Hepatitis C Virus RNA. Detection and Quantitation by Real-Time Reverse Stripe Marker-PCR.Current Interpretive data was last revised on 2016. Blood specimen (specimen) 05/18/2017 9:43 AM ADMINISTRATIVE SUPPORT ASSISTANT 05/18/2017 10:16 AM ADMINISTRATIVE SUPPORT ASSISTANT Narrative [facility] - 05/18/2017 1:47 PM ADMINISTRATIVE SUPPORT ASSISTANT Wilmer Colon MD LAB MICROBIOLOGY - GENERAL O RDERABLES Edited Result - Final Performing Organization Address [facility] Co de Phone Number [facility] Department [place] [address] from Last 3 Months or Most Recently Relevant to Health Maintenance Insurance [facility] [place] [address] [place] [address] [facility] Care Teams Press Operator Heavy Duty Relationship Specialty Start Date End Date João Alvarez MD PCP - General 08/23/16 Wilmer Colon MD [address] [address] Medical Oncologist/Business Systems Consultant Medical Oncology 04/16/22
--- OUTSIDE RECORDS SUMMARY | 2024-08-07 16:47 | XMS_ITS ---
Author Organization Unknown Medications Medication Instructions Effective Dates (start - stop) Status 0.5 ML semaglutide 0.5 MG/ML Auto-Injector [Vitals (vitals.com)vy] - Completed 0.5 ML semaglutide 0.5 MG/ML Auto-Injector [Vitals (vitals.com)vy] - Completed hydrochlorothiazide 25 MG / triamterene 37.5 MG Oral Tablet - Compl eted hydrochlorothiazide 25 MG / triamterene 37.5 MG Oral Tablet - Compl eted 0.5 ML semaglutide 2 MG/ML Auto-Injector [Vitals (vitals.com)vy] - Completed hydrochlorothiazide 25 MG / triamterene 37.5 MG Oral Tablet - Compl eted hydrochlorothiazide 25 MG / triamterene 37.5 MG Oral Tablet - Compl eted Patient Care team information Name Category Status Period Participants - - Proposed period not known -
--- OUTSIDE RECORDS SUMMARY | 2024-08-07 16:47 | XMS_ITS | Clinical Summary ---
Author Organization [facility] Address [facility] [place] [address] Care Team Providers Care Business Relations Manager Name Role Phone João Alvarez MD Primary Care Provider [phone] Allergies Active Allergy Reactions Criticality Noted Date Comments Amoxicillin Hives,Rash Medium 07/07/2012 Ampicillin Hives,Rash Medium 07/14/2012 Cefuroxime Hives,Rash Medium 08/02/2014 Metronidazole Hives,Rash Medium 05/12/2012 Sulfamethoxazole-Trimethoprim Hives,Rash Medium 2012 Medications naproxen sodium (ANAPROX) 220 MG tablet TAKE TABLET 1-2 tablets daily as needed Active multi vitamin/mineral s (THERA-M ENHANCED) tablet Take 1 tablet by mouth daily. Active semaglutide-vipul ght management (WEGOVY) 0.25 mg/dose injection (PEN) Inject 0.25 mg into the skin once a week. Active triamterene-hyd roCHLOROthiazid e (MAXZIDE-25) 37.5-25 MG tablet Take 1 tablet by mouth daily. 02/14/2023 Active Active Problems Problem Noted Date Diagnosed Date Stress incontinence 07/09/2021 Social History Tobacco Use Types Packs/Day Years Used Date Smoking Tobacco: Never Passive Smoke Exposure: Never Smokeless Tobacco: Never Tobacco Cessation:Counseling Given: Not Answered Alcohol Use Standard Drinks/Week Comments Yes 0 (1 standard drink = 0.6 oz pur e alcohol) rare Comments No Sex and Gender Information Value Date Recorded Sex Assigned at Not on file Legal Sex Female 6:26 PM CDT Gender Identity Not on file Sexual Orientation Not on file Last Filed Vital Signs Vital Sign Reading Time Taken Comments Blood Pressure 120/75 04/07/2023 8:52 AM LUCERNE FARMER Pulse 76 04/07/2023 8:52 AM LUCERNE FARMER Temperature 36.3 C (97.4 F) 04/07/2023 8:52 AM LUCERNE FARMER Respiratory Rate 16 04/07/2023 8:52 AM LUCERNE FARMER Oxygen Saturation 99% 04/07/2023 8:52 AM LUCERNE FARMER Inhaled Oxygen Concentration - - Weight 88.5 kg (195 lb) 04/07/2023 6:56 AM LUCERNE FARMER Height 166.1 cm (5' 5.39 ) 04/07/2023 6:56 AM CS T Body Mass Index 32.06 04/07/2023 6:56 AM LUCERNE FARMER Plan of Treatment Health Maintenance Due Date Last Done Comments Colorectal Cancer Screening Colonoscopy (10 Years) 1966 Annual Physical 1969 Hepatitis C 1984 DTaP, Tdap and Td Vaccines ( 1 - Tdap) 1985 Hepatitis B Vaccines (1 of 3 - 19+ 3-dose series) 1985 Mammogram Screening 2006 Cervical Cancer Screening Pa p Smear (Age 30 to 64) Every 3 Years 04/19/2020 04/19/2017 Cervical Cancer Screening Pa p with HPV Testing (Age 30 to 64) Every 5 Years 04/19/2022 04/19/2017 Cervical Cancer Screening wi th HPV 04/19/2022 COVID-19 Vaccine (2023-2 5 season) 2024 07/17/2020, 06/26/2020 Zoster Vaccines Completed 05/29/2021, 02/12/2021 Meningococcal B Vaccine Aged Out No l onger eligible based on patient's age to complete this topic Meningococcal Vaccine Aged Out No osito rian eligible based on patient's age to complete this topic Pneumococcal Vaccine: Pediatrics (0 to 5 Years) and At-Risk Patients (6 to 64 Years) Aged Out No longer eligible b ased on patient's age to complete this topic RSV Immunizations Under 20 Months Aged Out No longer eligible b ased on patient's age to complete this topic Insurance [employer] [facility] Advance Directives * Full Code (Latest Code Status on File) Date Activated Date Inactivated Comments 04/07/2023 8:07 AM 04/07/2023 11:29 AM Care Teams Business Relations Manager Relationship Specialty Start Date End Date João Alvarez MD [address] [place], [place] [id number] PCP - General FAMILY PRACTICE 01/11/23
== END 2024-08-07 15:38 | disposition home or self-care (01) ==
LOC: ANHIMG 15:38
PROVIDERS: PCP Family Medicine; Visit Provider Obstetrics & Gynecology
DX: Z12.31 Encounter for screening mammogram for malignant neoplasm of breast (principal)
CPT/HCPCS: 77063; 77067

== ENCOUNTER 2024-12-18 10:35 | Outpatient (CLI) | payer OTHER, SELFPAY ==
--- NOTE | ~2024-12-18 | XR_ITS ---
EXAM/ PROCEDURE: XR shoulder RT min 2V - 12/18/2024 10:42 CDT HISTORY: 59 years old Female with M25.511 - Pain in right shoulder COMPARISON: None available TECHNIQUE: Three view(s) FINDINGS/ IMPRESSION: There are no fractures or dislocations.Joint space narrowing, subchondral sclerosis, subchondral cyst formation and osteophyte formation, compatible with mild osteoarthritis. Reviewed, dictated and finalized at location A.
--- NOTE | ~2024-12-18 | XR_ITS ---
EXAM/ PROCEDURE: XR wrist RT min 3V - 12/18/2024 10:42 CDT HISTORY: 59 years old Female with S69.91XA - Unspecified injury of right wrist, hand and fi... COMPARISON: None available TECHNIQUE: Three view(s) FINDINGS/ IMPRESSION: There are no fractures or dislocations.Joint spaces are within normal limits. Reviewed, dictated and finalized at location A.
== END 2024-12-18 10:36 | disposition home or self-care (01) ==
LOC: MICIMG 10:38
PROVIDERS: PCP Family Medicine; Visit Provider Physician Assistant Medical
DX: S69.91XA Unspecified injury of right wrist, hand and finger(s), initial encounter (principal); X58.XXXA Exposure to other specified factors, initial encounter
CPT/HCPCS: 73030; 73110